=== PATIENT | male | born 1955 | race Caucasian/White ===

== ENCOUNTER → 2018-06-09 | Outpatient (CLI) | payer OTHER | END | disposition home or self-care (01) | LOC: PCVCCLINIC 12:53 | PROVIDERS: ATTEND Internal Medicine | DX: I25.10 Atherosclerotic heart disease of native coronary artery without angina pectoris (principal); I25.5 Ischemic cardiomyopathy; I42.0 Dilated cardiomyopathy; I65.23 Occlusion and stenosis of bilateral carotid arteries; E78.5 Hyperlipidemia, unspecified; E78.00 Pure hypercholesterolemia, unspecified; Z79.82 Long term (current) use of aspirin; Z87.891 Personal history of nicotine dependence | CPT/HCPCS: 80061; 93005; G0463 ==

== ENCOUNTER → 2018-08-02 | Outpatient (CLI) | payer OTHER | END | disposition home or self-care (01) | LOC: PCVCCLINIC 14:46 | PROVIDERS: ATTEND Internal Medicine | DX: I25.10 Atherosclerotic heart disease of native coronary artery without angina pectoris (principal); I42.0 Dilated cardiomyopathy; I65.23 Occlusion and stenosis of bilateral carotid arteries; E78.5 Hyperlipidemia, unspecified; Z79.82 Long term (current) use of aspirin; Z87.891 Personal history of nicotine dependence | CPT/HCPCS: 93005; G0463 ==

== ENCOUNTER → 2018-11-15 | Outpatient (CLI) | payer MEDICARE | END | disposition home or self-care (01) | LOC: PCVCCLINIC 11:29 | PROVIDERS: ATTEND Internal Medicine | DX: I25.10 Atherosclerotic heart disease of native coronary artery without angina pectoris (principal); I25.5 Ischemic cardiomyopathy; I42.0 Dilated cardiomyopathy; I10 Essential (primary) hypertension; I65.23 Occlusion and stenosis of bilateral carotid arteries; E78.5 Hyperlipidemia, unspecified | CPT/HCPCS: 36415; 80061; 93005; G0463 ==

== ENCOUNTER → 2019-05-26 | Outpatient (CLI) | payer MEDICARE | END | disposition home or self-care (01) | LOC: PCVCCLINIC 14:20 | PROVIDERS: ATTEND Internal Medicine | DX: I25.10 Atherosclerotic heart disease of native coronary artery without angina pectoris (principal); I25.5 Ischemic cardiomyopathy; I42.0 Dilated cardiomyopathy; I10 Essential (primary) hypertension; I65.23 Occlusion and stenosis of bilateral carotid arteries; E78.5 Hyperlipidemia, unspecified; R06.02 Shortness of breath; Z79.82 Long term (current) use of aspirin; Z87.891 Personal history of nicotine dependence | CPT/HCPCS: 36415; 80061; 93005; G0463 ==

== ENCOUNTER → 2019-06-26 | Outpatient (CLI) | payer MEDICARE ==
--- NOTE | 2019-06-26 10:56 | PCVCIMAG ---
APPROVED REPORT Indications Stenosis Risk Factors Hypertension: CAD Doppler Spectral Velocity Analysis PSV / EDVPSV / EDV ECA (R) 126 / 21 cm/sECA (L) 254 / 38 cm/s dICA (R) 61 / 25 cm/sdICA (L) 80 / 32 cm/s Kandace (R) 86 / 32 cm/smICA (L) 87 / 32 cm/s pICA (R) 68 / 26 cm/spICA (L) 78 / 28 cm/s Bulb (R) 75 / 18 cm/sBulb (L) 81 / 22 cm/s dCCA (R) 84 / 23 cm/sdCCA (L) 90 / 27 cm/s mCCA (R) 98 / 25 cm/smCCA (L) 133 / 34 cm/s Vert (R) 55 / 19 cm/sVert (L) 67 / 24 cm/s ICA/CCA 0.97 Basic Measurements Blood Pressure: Pulses: Right Left RightLeft Brachial(Sitting) 126/00vhPe296/76mmHgTemporal Real Time B-Mode Imaging Vert. (R)AntegradeVert. (L)Antegrade Findings The right carotid bulb has moderate calcified plaque. The right proximal internal carotid artery shows <40% stenosis. The right common carotid artery shows no significant stenosis. The right external carotid artery shows no significant stenosis. The left carotid bulb has mild plaque. The left proximal internal carotid artery shows <40% stenosis. The left common carotid artery shows no significant stenosis. The left external carotid artery shows >50% stenosis. Conclusion 1. Right internal carotid artery stenosis (<40%). 2. Left internal carotid artery stenosis (<40%) 3. Antegrade vertebral flow
--- NOTE | 2019-06-26 11:41 | PCVCIMAG ---
APPROVED REPORT Study performed: 06/26/2019 10:49:08 Exam: Stress Echocardiogram Indication: CAD s/p PCI RCA, mitral regurgitation, ischemic cardiomyopathy, dyspnea Patient Location: Echo lab Stress Nurse: Danuta Nascimento RN Status: routine Ht: 6 ft 5 in HR: 71 bpm BP: 136/84 mmHg Rhythm: NSR Procedure The patient underwent an Exercise Stress Test using the [facility] Protocol. Blood pressure, heart rate, and EKG were monitored. An Echocardiogram was performed by electrical laboratory technician in four stages in quad fashion. At peak stress, four selected images were obtained and placed side by side with resting images for comparison. Stress Test Details Stress Test: Exercise stress testing was performed using a [facility] protocol. HR Resting HR: 71 bpmMax Heart Rate (APMHR): 154 bpm Max HR Achieved: 133 bpmTarget HR (85% APMHR): 130 bpm % of APMHR: 86 Recovery HR: 83 bpm HR response to stress: Normal HR response to stress BP Resting BP: 136/84 mmHg Max BP: 170/76 mmHg Recovery BP: 140/78 mmHg BP response to stress: Normal blood pressure response to stress. 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 Exercise capacity: 10.1 METs Overall Exercise Capacity for Age: Normal Scale: Active Angina Score: None Stress ECG Conclusion Clinical: Non-ischemic ECG: Non-ischemic Gonzalez Treadmill Score is 8.0 which is Low risk. Pre-Stress Echo The resting Echocardiogram showed normal left ventricular contractility with an estimated Ejection Fraction of about 40-45%. The resting Echocardiogram demonstrated wall motion abnormality in the mid-inferior, basal inferior bills. Fixed inferior hypokinesis consistent with old [place]. Post-Stress Echo The stress Echocardiogram showed normal left ventricular contractility with an estimated Ejection Fraction of about 50-55%. Fixed inferior hypokinesis consistent with old [place]. No new regional wall motion abnormalities. Clinical No clinical or ECG evidence for ischemia. Conclusion Clinical Response: Non-ischemic Exercise Capacity: Average Stress ECG Response: Non-ischemic Stress Echo Images: Non-ischemic Non-ischemic stress echocardiogram with maximal exercise stress. Prior inferior infarct Mild-moderate posterior mitral regurgitation. No tricuspid regurgitation or stenosis. Mild pulmonic and mitral regurgitation. No valvular stenosis. Other Information Study Quality: Adequate <Conclusion> Non-ischemic stress echocardiogram with maximal exercise stress. Prior inferior infarct Mild-moderate posterior mitral regurgitation. No tricuspid regurgitation or stenosis. Mild pulmonic and mitral regurgitation. No valvular stenosis.
== END | disposition home or self-care (01) ==
LOC: PCVCIMAG 10:24
PROVIDERS: ATTEND Internal Medicine
DX: I65.23 Occlusion and stenosis of bilateral carotid arteries (principal); I08.8 Other rheumatic multiple valve diseases; I10 Essential (primary) hypertension; E78.5 Hyperlipidemia, unspecified; I25.2 Old myocardial infarction; I73.9 Peripheral vascular disease, unspecified; I25.10 Atherosclerotic heart disease of native coronary artery without angina pectoris; I25.5 Ischemic cardiomyopathy; I42.0 Dilated cardiomyopathy; Z95.1 Presence of aortocoronary bypass graft; Z82.49 Family history of ischemic heart disease and other diseases of the circulatory system; Z87.891 Personal history of nicotine dependence; Z95.5 Presence of coronary angioplasty implant and graft
CPT/HCPCS: 93325; 93351; 93880